=== PATIENT | male | born 1955 | race African-American/Black ===

== ENCOUNTER 2016-09-22 09:47 | Inpatient (IN) | payer MEDICAID ==
[~2016-09-22] VITALS: Ht 185.4 cm; Wt 83.8 kg
[~2016-09-22 09:47] MED LIST: ARIP5TAB9 PO; ESCI20TA PO; NICO21T TD; TAMS0.4C32 PO
[2016-09-22 10:35] LABS: BASOPHILS % (AUTO) 0.2 % (0.0-2.0); EOSINOPHILS % (AUTO) 0.5 % (1.0-6.0); HEMATOCRIT 44.4 % (41-53); HEMOGLOBIN 14.7 g/dL (13.5-17.5); LYMPHOCYTES # (AUTO) 1.1 K/uL (1.0-4.8); LYMPHOCYTES % (AUTO) 12.9 % (22.0-44.0); MEAN CORPUSCULAR HEMOGLOBIN 30.8 pg (26.0-34.0); MEAN CORPUSCULAR VOLUME 93 fL (80-100); MONOCYTES # (AUTO) 0.6 K/uL (0.1-1.0); MONOCYTES % (AUTO) 6.9 % (2.0-9.0); NEUTROPHILS # (AUTO) 6.9 K/uL (1.8-7.7); NEUTROPHILS % (AUTO) 79.5 % (40.0-70.0); PLATELET COUNT (AUTO) 231 K/uL (150-450); RED BLOOD CELL COUNT(AUTO) 4.76 MIL/uL (4.50-5.90); RED CELL DISTRIBUTION WIDTH 13.9 % (11.5-14.5); WHITE BLOOD COUNT (AUTO) 8.7 K/uL (4.5-11.0)
[2016-09-22 10:44] LABS: ANION GAP 5 mmol/L (8-16); CALCIUM, TOTAL 8.6 mg/dL (8.8-10.5); CARBON DIOXIDE 31 mmol/L (22-29); CHLORIDE 101 mmol/L (98-107); CREATININE 0.99 mg/dL (0.60-1.30); GLOMERULAR FILTR. RATE CALC > 60 mL/min (>60); POTASSIUM 4.2 mmol/L (3.5-5.1); SODIUM SERUM 137 mmol/L (136-145); UREA NITROGEN, BLOOD 13 mg/dL (7-18)
[2016-09-22 10:49] LABS: ALANINE AMINOTRANSFERASE 33 U/L (12-78); ALBUMIN 3.9 g/dL (3.4-5.0); ASPARTATE AMINOTRANSFERASE 19 U/L (15-37); BILIRUBIN,TOTAL 0.3 mg/dL (0.1-1.0); TOTAL PROTEIN, SERUM 7.4 g/dL (6.4-8.2)
[2016-09-22] MEDS ORDERED: QUEtiapine FUMARATE 100 MG TABLET PO PRN (14:00)
[2016-09-22] MEDS ORDERED: ZOLPIDEM TARTRATE 10 MG TABLET PO PRN (14:00)
[2016-09-22] MEDS: LORazepam 2 MG TABLET PO PRN ×2 (15:03→23:39)
[2016-09-22 16:15] VITALS: BP 151/71
[2016-09-22] MEDS ORDERED: ACETAMINOPHEN 325 MG TABLET PO PRN (16:45)
[2016-09-22] MEDS: IBUPROFEN 600 MG TABLET PO PRN (20:13)
[2016-09-22 20:14] VITALS: BP 139/78
[2016-09-22] MEDS ORDERED: ARIPiprazole 5 MG TABLET PO SCH (21:00)
[2016-09-23] MEDS ORDERED: BACITRACIN 28.4 GM OINTMENT TP PRN (07:45)
[2016-09-23] MEDS ORDERED: ALBUTEROL SULFATE HFA 90 MCG/PUFF 8 GM INHALER IH PRN (07:45)
[2016-09-23] MEDS ORDERED: LOPERAMIDE HCL 2 MG CAPSULE PO PRN (07:45)
[2016-09-23] MEDS ORDERED: BENZOCAINE/MENTHOL LOZENGE [8 LOZENGES/PACKET] MM PRN (07:45)
[2016-09-23] MEDS ORDERED: ONDANSETRON HCL 4 MG TABLET PO PRN (07:45)
[2016-09-23] MEDS ORDERED: PETROLATUM,WHITE 71 GM JELLY TP PRN (07:45)
[2016-09-23] MEDS ORDERED: CloNIDine HCL 0.1 MG TABLET PO PRN (07:45)
[2016-09-23] MEDS ORDERED: MAG HYDROX/AL HYDROX/SIMETH ES 30 ML SUSPENSION UDCUP PO PRN (07:45)
[2016-09-23] MEDS ORDERED: MAGNESIUM HYDROXIDE SUSPENSION 30 ML UDCUP PO PRN (07:45)
[2016-09-23] MEDS ORDERED: DICLOFENAC SODIUM 1% 100 GM GEL [2GM] TP PRN (07:45)
[2016-09-23 08:47] VITALS: BP 139/93
[2016-09-23] MEDS: LORazepam 2 MG TABLET PO PRN ×2 (08:58→19:16)
[2016-09-23] MEDS: LISINOPRIL 10 MG TABLET PO SCH (08:58)
[2016-09-23] MEDS: TAMSULOSIN HCL 0.4 MG CAPSULE PO SCH (08:58)
[2016-09-23] MEDS: ESCITALOPRAM OXALATE 10 MG TABLET PO SCH (08:58)
[2016-09-23] MEDS: PHENAZOPYRIDINE HCL 100 MG TABLET PO SCH ×3 (08:59→16:38)
[2016-09-23] MEDS: NICOTINE 21 MG/24 HOUR PATCH TD SCH (09:01)
[2016-09-23 09:05] VITALS: BP 139/93
[2016-09-23] MEDS: IBUPROFEN 600 MG TABLET PO PRN (09:10)
[2016-09-23] MEDS ORDERED: TraMADol HCL 50 MG TABLET PO PRN (18:15)
[2016-09-23 19:40] VITALS: BP 118/66
[2016-09-23] MEDS: ARIPiprazole 10 MG TABLET PO SCH (20:09)
[2016-09-23] MEDS: ZOLPIDEM TARTRATE 10 MG TABLET PO PRN (21:10)
[2016-09-24] MEDS: TAMSULOSIN HCL 0.4 MG CAPSULE PO SCH (09:03)
[2016-09-24] MEDS: ESCITALOPRAM OXALATE 10 MG TABLET PO SCH (09:03)
[2016-09-24] MEDS: LISINOPRIL 10 MG TABLET PO SCH (09:04)
[2016-09-24] MEDS: NICOTINE 21 MG/24 HOUR PATCH TD SCH (09:05)
[2016-09-24] MEDS: PHENAZOPYRIDINE HCL 100 MG TABLET PO SCH ×3 (09:05→16:38)
[2016-09-24] MEDS: LORazepam 2 MG TABLET PO PRN (09:32)
[2016-09-24 10:08] VITALS: BP 103/67
[2016-09-24 16:36] VITALS: BP 120/64
[2016-09-24] MEDS: OxyCODONE HCL/ACETAMINOPHEN 10-325 MG TABLET PO PRN (16:37)
[2016-09-24 17:36] VITALS: BP 112/69
[2016-09-24] MEDS: ZOLPIDEM TARTRATE 10 MG TABLET PO PRN (20:56)
[2016-09-24] MEDS: ARIPiprazole 10 MG TABLET PO SCH (20:56)
[2016-09-25 08:00] VITALS: BP 107/60
[2016-09-25] MEDS: PHENAZOPYRIDINE HCL 100 MG TABLET PO SCH ×3 (08:09→16:05)
[2016-09-25] MEDS: ESCITALOPRAM OXALATE 20 MG TABLET PO SCH (08:09)
[2016-09-25] MEDS: TAMSULOSIN HCL 0.4 MG CAPSULE PO SCH (08:09)
[2016-09-25] MEDS: OxyCODONE HCL/ACETAMINOPHEN 10-325 MG TABLET PO PRN ×2 (08:11→16:06)
[2016-09-25] MEDS: NICOTINE 21 MG/24 HOUR PATCH TD SCH (08:13)
[2016-09-25 09:00] VITALS: BP 119/70
[2016-09-25] MEDS: LORazepam 2 MG TABLET PO PRN (09:06)
[2016-09-25 16:07] VITALS: BP 118/69
[2016-09-25] MEDS: ARIPiprazole 10 MG TABLET PO SCH (20:35)
[2016-09-25] MEDS: ZOLPIDEM TARTRATE 10 MG TABLET PO PRN (21:05)
[2016-09-26 00:40] VITALS: BP 121/72
[2016-09-26] MEDS: OxyCODONE HCL/ACETAMINOPHEN 10-325 MG TABLET PO PRN ×3 (00:42→19:05)
[2016-09-26 08:07] VITALS: BP 130/74
[2016-09-26] MEDS: ESCITALOPRAM OXALATE 20 MG TABLET PO SCH (08:22)
[2016-09-26] MEDS: TAMSULOSIN HCL 0.4 MG CAPSULE PO SCH (08:22)
[2016-09-26] MEDS: NICOTINE 21 MG/24 HOUR PATCH TD SCH (08:23)
[2016-09-26 09:50] VITALS: BP 125/74
[2016-09-26] MEDS: LORazepam 2 MG TABLET PO PRN (16:03)
[2016-09-26 17:58] VITALS: BP 121/82
[2016-09-26 19:06] VITALS: BP 118/69
[2016-09-26] MEDS: ARIPiprazole 10 MG TABLET PO SCH (20:29)
[2016-09-27 08:37] VITALS: BP 120/64
[2016-09-27] MEDS: TAMSULOSIN HCL 0.4 MG CAPSULE PO SCH (08:41)
[2016-09-27] MEDS: ESCITALOPRAM OXALATE 20 MG TABLET PO SCH (08:41)
[2016-09-27] MEDS: OxyCODONE HCL/ACETAMINOPHEN 10-325 MG TABLET PO PRN ×2 (08:41→17:05)
[2016-09-27] MEDS: LORazepam 2 MG TABLET PO PRN (08:41)
[2016-09-27] MEDS: NICOTINE 21 MG/24 HOUR PATCH TD SCH (08:42)
[2016-09-27] MEDS: CIPROFLOXACIN HCL 250 MG TABLET PO SCH ×2 (10:26→16:09)
[2016-09-27 17:02] VITALS: BP 116/74
[2016-09-27] MEDS: ARIPiprazole 10 MG TABLET PO SCH (20:22)
[2016-09-28] MEDS: OxyCODONE HCL/ACETAMINOPHEN 10-325 MG TABLET PO PRN ×3 (06:33→23:01)
[2016-09-28 08:00] VITALS: BP 126/87
[2016-09-28] MEDS: NICOTINE 21 MG/24 HOUR PATCH TD SCH (09:00)
[2016-09-28] MEDS: ESCITALOPRAM OXALATE 20 MG TABLET PO SCH (09:01)
[2016-09-28] MEDS: CIPROFLOXACIN HCL 250 MG TABLET PO SCH ×2 (09:01→17:00)
[2016-09-28] MEDS: TAMSULOSIN HCL 0.4 MG CAPSULE PO SCH (09:01)
[2016-09-28] MEDS: LORazepam 2 MG TABLET PO PRN (09:03)
[2016-09-28] MEDS ORDERED: CIP250 PO (14:38)
[2016-09-28] MEDS ORDERED: ARIP10TA14 PO (14:38)
[2016-09-28 17:07] VITALS: BP 133/92
[2016-09-28] MEDS: ARIPiprazole 10 MG TABLET PO SCH (20:33)
[2016-09-28 23:00] VITALS: BP 139/88
[2016-09-29 08:00] VITALS: BP 143/61
[2016-09-29 08:30] VITALS: BP 143/61
[2016-09-29] MEDS: CIPROFLOXACIN HCL 250 MG TABLET PO SCH (08:32)
[2016-09-29] MEDS: OxyCODONE HCL/ACETAMINOPHEN 10-325 MG TABLET PO PRN (08:32)
[2016-09-29] MEDS: TAMSULOSIN HCL 0.4 MG CAPSULE PO SCH (08:32)
[2016-09-29] MEDS: LORazepam 2 MG TABLET PO PRN (08:32)
[2016-09-29] MEDS: NICOTINE 21 MG/24 HOUR PATCH TD SCH (08:33)
[2016-09-29] MEDS: ESCITALOPRAM OXALATE 20 MG TABLET PO SCH (08:34)
== END 2016-09-29 10:35 | disposition home or self-care (01) | DRG 751 ==
LOC: EMS 09:49 → EEVIPCON 09:49 → 3EI 14:51
PROVIDERS: ADMIT Psychiatry & Neurology Psychiatry; ATTEND Psychiatry & Neurology Psychiatry
DX: F33.2 Major depressive disorder, recurrent severe without psychotic features (principal); R45.851 Suicidal ideations; J44.9 Chronic obstructive pulmonary disease, unspecified; E78.5 Hyperlipidemia, unspecified; F17.210 Nicotine dependence, cigarettes, uncomplicated; F41.9 Anxiety disorder, unspecified; G47.00 Insomnia, unspecified; G89.29 Other chronic pain; M54.5 Low back pain; I10 Essential (primary) hypertension; K21.9 Gastro-esophageal reflux disease without esophagitis; M19.90 Unspecified osteoarthritis, unspecified site; N40.0 Benign prostatic hyperplasia without lower urinary tract symptoms; R30.0 Dysuria; R51 Headache; Z60.2 Problems related to living alone; Z59.0 Homelessness; Z79.899 Other long term (current) drug therapy; Z71.6 Tobacco abuse counseling; Z98.890 Other specified postprocedural states
CPT/HCPCS: 99285; G0480

== ENCOUNTER 2017-04-03 10:31 | Emergency (ER) | payer MEDICAID ==
[~2017-04-03] VITALS: Ht 185.4 cm; Wt 81.5 kg
[~2017-04-03 10:31] MED LIST changes: +ARIP10TA14 PO; -ARIP5TAB9 PO; +DSS100 PO; -NICO21T TD; +OMEP20 PO; -TAMS0.4C32 PO
[2017-04-03] MEDS ORDERED: GABA-531 PO (10:46)
[2017-04-03] MEDS ORDERED: ZOLP10 PO (10:46)
[2017-04-03] MEDS ORDERED: PERCT10 PO (10:46)
[2017-04-03] MEDS ORDERED: METHOCARBAMOL 500 MG TABLET PO ONE (12:15)
[2017-04-03] MEDS ORDERED: KETOROLAC TROMETHAMINE 60 MG/2 ML VIAL IM ONE (12:15)
[2017-04-03 12:40] VITALS: BP 138/89
== END 2017-04-03 12:43 | disposition home or self-care (01) ==
LOC: EMS 10:33
DX: M54.5 Low back pain (principal); G89.29 Other chronic pain; F17.210 Nicotine dependence, cigarettes, uncomplicated
CPT/HCPCS: 96372; 99283; J1885